=== PATIENT | male | born 1995 | race Caucasian/White ===

== ENCOUNTER 2022-04-28 14:54 | Emergency (ER) | payer BC, SELFPAY ==
[2022-04-28 15:06] VITALS: BP 140/85; PULSE 61; RESP 16; TEMP 36.8; O2SAT 98
--- NOTE | 2022-04-28 15:54 | ED.DENTAL ---
HPI - Dental/Oral General Chief complaint: Dental/Oral Stated complaint: Toothache Source: patient and RN notes reviewed History of Present Illness HPI Narrative: 26-year-old male presents to urgent care with complaints of left upper dental pain and left facial swelling for last 2-3 days. Patient states he has had issues with this tooth before. Patient denies any fevers, chills, trouble swallowing, shortness of breath, or chest pain. Patient states he did take 1 of his leftover tramadol pills from 2 years ago without relief. Patient states his girlfriend is making him a dentist appointment for next week. Some parts of this dictation were generated by voice recognition software and may contain typographical and/or grammatical inaccuracies. Related Data Home Medications Medication Instructions Recorded Confirmed tramadol 04/28/22 Allergies Allergy/AdvReac Type Severity Reaction Status Date / Time No Known Allergies Allergy Verified 04/28/22 15:03 Review of Systems Review of Systems: CONSTITUTIONAL: Denies fever, chills, or sweats. EYES: Denies visual changes, redness, or discharge. ENT: Denies otalgia and sore throat. Reports tooth pain and facial swelling CARDIOVASCULAR: Denies chest pain, palpitations, or edema. RESPIRATORY: Denies cough or dyspnea. GASTROINTESTINAL: Denies abdominal pain, nausea, vomiting, or diarrhea. GENITOURINARY: Denies dysuria or hematuria. SKIN: Denies rash or itching. MUSCULOSKELETAL: Denies back pain, joint pain, or myalgia. PMFSH Comments At the time of my signature, I reviewed and agree with the nursing past medical, surgical, social, and family history. There is no relevant family history pertinent to the patient complaint. Exam Narrative: GENERAL: This is a well-nourished, well-developed patient, in no apparent distress. HEAD: normocephalic, atraumatic. EYES: PERRL. Sclera clear/white. Vision is grossly intact. EARS: External ears normal, auditory canals clear and without drainage, TMs normal without perforation. Hearing grossly intact. NOSE: External nose normal with no obvious nasal discharge, nares without redness, no rhinorrhea. THROAT: Mucous membranes moist, posterior pharynx clear. NECK: Neck supple, non-tender without lymphadenopathy, masses or thyromegaly. CARDIOVASCULAR: Regular rate and rhythm without murmurs, gallops, or rubs. RESPIRATORY: Clear to auscultation. Breath sounds equal bilaterally. No wheezes, rales, or rhonchi. GASTROINTESTINAL: Abdomen soft, non-tender, nondistended. Bowel sounds are active. No hepato-splenomegaly, or palpable masses. No guarding. SKIN: warm, intact with no suspicious lesions or rash, good texture and turgor. NEURO: awake, alert, and oriented to person, place and time. There were no obvious focal neurologic abnormalities. MOUTH: Tooth #16 tender with surrounding edematous gums. No exudate noted. Course Course Level of Care: Express Care Visit Vital Signs Vital signs: Vital Signs Temperature 98.2 F 04/28/22 15:06 Pulse Rate 61 04/28/22 15:06 Respiratory Rate 16 04/28/22 15:06 Blood Pressure 140/85 04/28/22 15:06 Pulse Oximetry 98 04/28/22 15:06 Temperature 98.2 F 04/28/22 15:06 Pulse Rate 61 04/28/22 15:06 Respiratory Rate 16 04/28/22 15:06 Blood Pressure 140/85 04/28/22 15:06 Pulse Oximetry 98 04/28/22 15:06 Reviewed MDM - Dental/Oral MDM Narrative Medical decision making narrative: Take antibiotic until it's gone. Brushing teeth at least twice daily with gentle flossing. Avoid temperature extremes---when you eat. Salt gargle to rinse your mouth after every meal You may apply ice to the face to reduce pain/swelling. For pain, you may take: Tylenol 650-1000mg by mouth every 4-6 hours. Do not exceed 4000mg in 24 hours. Advil (Ibuprofen) 600 mg by mouth every 6 hours. Do not exceed 2400mg in 24 hours. Also, recommend regular dental check up one-two times a year to prevent
== END 2022-04-28 16:12 | disposition home or self-care (01) ==
PROVIDERS: Emergency Provider Nurse Practitioner Family; PCP Emergency Medicine
DX: K04.7 Periapical abscess without sinus (principal)
CPT/HCPCS: 99213; G0463

== ENCOUNTER 2024-10-17 08:23 | Emergency (ER) | payer SELFPAY ==
--- NOTE | ~2024-10-17 | XR_ITS ---
EXAM/ PROCEDURE: XR toe 4th RT min 2V - 10/17/2024 8:40 CDT HISTORY: 28 years old Male with injury yesterday pain rt 4th toe COMPARISON: None available TECHNIQUE: Three view(s) FINDINGS/ IMPRESSION: Acute nondisplaced spiral fracture of the fourth proximal phalanx. Joint spaces are within normal mejia its. Reviewed, dictated and finalized at location A.
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
[2024-10-17 08:37] VITALS: BP 128/67; PULSE 91; RESP 16; TEMP 36.8; O2SAT 99
--- NOTE | 2024-10-17 09:36 | ED.LOWEXIN ---
HPI - Extremity Injury (Lower) General Chief Complaint: Extremity Injury, Lower Stated Complaint: Toe Injury/On Right Foot Time Seen by Provider: 10/17/24 08:50 Source: patient and RN notes reviewed Mode of arrival: ambulatory Limitations: no limitations History of Present Illness HPI Narrative: 28-year-old male Presents Express Care complaining of injury to right 4th toe. Patient reports accidentally striking 4th right toe on the table after trying to avoid his cat at home. Patient has not taken anything for the pain. Patient reports bruising swelling to the 4th right toe. Patient denies any numbness, tingling or any other injuries. Patient denies any significant past medical history. Related Data Home Medications ?Medication ?Instructions ?Recorded ?Confirmed ?Last Taken ?Type No Home Medications 10/17/24 10/17/24 Unknown History Allergies Allergy/AdvReac Type Severity Reaction Status Date / Time No Known Allergies Allergy Verified 10/17/24 08:39 Review of Systems Review of Systems: CONSTITUTIONAL: Denies fever, chills, or sweats. EYES: Denies visual changes, redness, or discharge. ENT: Denies rhinorrhea, congestion, sore throat, or otalgia. CARDIOVASCULAR: Denies chest pain, palpitations, or edema. RESPIRATORY: Denies cough or dyspnea. GASTROINTESTINAL: Denies abdominal pain, nausea, vomiting, or diarrhea. GENITOURINARY: Denies dysuria or hematuria. SKIN: Denies rash, wound, or itching. MUSCULOSKELETAL: Denies back pain, joint pain, or myalgia. Positive for toe injury or bruising, and swelling NEUROLOGIC: Denies headache, numbness, or weakness. PSYCHIATRIC: Denies anxiety or depression. All other systems reviewed are negative, except as documented in HPI. PMFSH Comments At the time of my signature, I reviewed and agree with the nursing past medical, surgical, social, and family history. There is no relevant family history pertinent to the patient complaint. Exam Narrative: GENERAL: This is a well-nourished, well-developed adult, in no apparent distress. They are non ill-appearing, nontoxic appearing. HEAD: normocephalic, atraumatic. EYES: Sclera clear/white. Vision is grossly intact. Conjunctiva normal. Extraocular movement intact. EARS: External ears normal Hearing grossly intact. NOSE: External nose normal THROAT: Mucous membranes moist NECK: Neck supple CARDIOVASCULAR: Regular rate and rhythm RESPIRATORY: Respiratory rate normal, respiratory effort nonlabored, no respiratory distress NEURO: awake, alert, and oriented to person, place and time. There were no obvious focal neurologic abnormalities. EXTREMITIES: Right foot: No obvious deformity. Fourth right toe is ecchymotic and swollen. Ecchymosis to the distal dorsal surface of right foot. Normal dorsiflexion and plantar flexion. Fourth right toes tender to palpate. No tenderness to palpation to distal dorsal surface of foot. Capillary refill less than 3 seconds. Right pedal Pulse 2 +palpable. Normal sensation. Neurovascular status intact distal injury. Patient is able to wiggle his toes. BACK: Nontender without deformity. Course Course Emergency Course: Portions of this record may have been created with voice recognition software Level of Care: Express Care Visit Vital Signs Vital signs: Vital Signs Temperature 98.2 F 10/17/24 08:37 Pulse Rate 91 10/17/24 08:37 Respiratory Rate 16 10/17/24 08:37 Blood Pressure 128/67 10/17/24 08:37 Pulse Oximetry 99 10/17/24 08:37 Oxygen Delivery Room Air 10/17/24 08:37 Temperature 98.2 F 10/17/24 08:37 Pulse Rate 91 10/17/24 08:37 Respiratory Rate 16 10/17/24 08:37 Blood Pressure 128/67 10/17/24 08:37 Pulse Oximetry 99 10/17/24 08:37 Oxygen Delivery Room Air 10/17/24 08:37 Reviewed Procedures Orthopedic Splinting/Casting Injury #1: Splinting/Casting Date: 10/17/24 Splinting/Casting Time: 09:10 Side: right Lower Extremity Injury Location: toe (4th right) Pre-Formed: post op shoe (Jacinta-taped) Pre-Procedure Neuro Vascular Exam: normal Post-Procedure Neuro Vascular Exam: normal Additional Comments: Patient tolerated procedure well MDM - Extremity Injury (Lower) MDM Narrative Medical decision making narrative: X-ray of 4th right toe shows a nondisplaced spiral fracture of the proximal phalanx. Patient given postop shoe and toe is jacinta-taped. Discussed physical exam findings. Advised supportive measures and signs/symptoms to go to the ER. Pt is appropriate for outpt treatment and f/u. Differential Diagnosis Differential diagnosis: Likely other (Toe fracture, toe contusion, foot fracture) Imaging Data Radiologist's impression: COMPARISON: None available TECHNIQUE: Three view(s) FINDINGS/ IMPRESSION: Acute nondisplaced spiral fracture of the fourth proximal phalanx. Joint spaces are within normal limits. Critical Care Time Critical Care Time Critical Care Time: No Discharge Plan Discharge Clinical Impression: Closed fracture of proximal phalanx of toe of right foot Patient Disposition: Home Condition: Stable Instructions: Toe Fracture (ED) Additional Instructions: The x-ray of your right 4th toe showed a nondisplaced fracture to the proximal part of your toe. Please wear the postop at all times and have this toe jacinta-taped. You may bear weight as tolerated. Rest and elevate the leg. Apply ice 15-20 minute intervals several times a day Motrin 600mg -800mg every 8 hours, alternate with Tylenol 1000mg every 8 hours as needed Follow up with your primary care provider or orthopedist, or senior service technician in 1-2 weeks for further evaluation. Patient Language: Greek Prescriptions: No Action No Home Medications Follow-up/Referrals: Ryder Paris DPM [Physician] - PHYSICIAN,[employer] [Primary Care Provider] - Albert Perez MD [Physician] - Time of Disposition: 09:10
== END 2024-10-17 09:26 | disposition home or self-care (01) ==
DX: S92.514A Nondisplaced fracture of proximal phalanx of right lesser toe(s), initial encounter for closed fracture (principal); W22.8XXA Striking against or struck by other objects, initial encounter
CPT/HCPCS: 73660; 99214; G0463